=== PATIENT | male | born 1980 | race Caucasian/White ===

== ENCOUNTER 2018-10-07 14:25 | Emergency (ER) | payer MEDICAID ==
[2018-10-07 16:35] VITALS: BP 112/64
--- NOTE | 2018-10-07 17:40 | EDM.PDOC ---
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 He complains of severe pain in the left side of his chest centered mostly in the left posterior axillary line. He said it feels sort of like something bubbling in there when he breathes. He's been using a chest binder to help. He said the pain just seems to get worse. - Related Data Allergies Allergy/AdvReac Type Severity Reaction Status Date / Time Penicillins AdvReac Cannot Verified 10/07/18 16:35 Remember Home Meds: Home Meds NK [No Known Home Meds] 10/07/18 [History] Past Medical History - Past Health History Medical/Surgical History: Denies Medical/Surgical History - Infectious Disease History Infectious Disease History: Reports: Chicken Pox - Past Surgical History Neurological Surgical History: Reports: Other (See Below) Social & Family History - Tobacco Use Smoking Status *Q: Current Every Day Smoker Years of Tobacco use: 10 Packs/Tins Daily: 1 - Caffeine Use Caffeine Use: Reports: Energy Drinks, Soda ED ROS GENERAL - Review of Systems Review Of Systems: ROS reveals no pertinent complaints other than HPI. ED EXAM, UPPER BACK/NECK PAIN - Physical Exam Exam: See Below Exam Limited By: No Limitations General Appearance: Alert, WD/WN, Moderate Distress (VERY slowly looks like he' s having a lot of pain) Cardiovascular/Respiratory: Regular Rate, Rhythm, Other (Lungs clear with normal air movement. No crepitance no rales rhonchi) GI/Abdominal: Soft, Non-Tender Back Exam: Normal Inspection Extremities: Normal Inspection (As above) Course - Vital Signs Last Recorded V/S: Last Vital Signs Temp 35.8 C 10/07/18 16:44 Pulse 57 L 10/07/18 16:44 Resp 16 10/07/18 16:44 BP 112/64 10/07/18 16:44 Pulse Ox 98 10/07/18 16:44 - Orders/Labs/Meds Orders: Active Orders 24 hr Category Date Time Status Ribs 2V w Chest Lt [CR] Stat Exams 10/07/18 17:37 Taken - Radiology Interpretation Free Text/Narrative:: Right ribs shows no rib fracture no pneumothorax no subcutaneous emphysema. Departure - Departure Time of Disposition: 18:19 Disposition: Home, Self-Care 01 Condition: Fair Clinical Impression: Bruised ribs - Discharge Information Referrals: PCP,None [Primary Care Provider] - Forms: ED Department Discharge Additional Instructions: Take Percocet 5/325 (#20) one or 2 tabs every 4 hours as needed for pain. This medication can cause sedation and impair driving and operating machinery. If abused it can cause addiction. He can also take a anti-inflammatory medication like Motrin or naproxen. Wear the chest binder if it helps. The soreness will probably last another week. - My Orders Last 24 Hours: My Active Orders 10/07/18 17:37 Ribs 2V w Chest Lt [CR] Stat - Assessment/Plan Last 24 Hours: My Active Orders 10/07/18 17:37 Ribs 2V w Chest Lt [CR] Stat
--- NOTE | 2018-10-08 09:25 | CR ---
Ribs 2V w Chest Lt CLINICAL HISTORY: Trauma FINDINGS: There is no acute fracture within the ribs. No destructive changes are seen. There is no focal pleural thickening or obvious effusion. IMPRESSION: Negative left ribs.
== END 2018-10-07 18:56 | disposition home or self-care (01) ==
LOC: JP.ED 14:25
DX: S20.212A Contusion of left front wall of thorax, initial encounter (principal); Z88.0 Allergy status to penicillin; F17.210 Nicotine dependence, cigarettes, uncomplicated; W10.9XXA Fall (on) (from) unspecified stairs and steps, initial encounter
CPT/HCPCS: 71101-26-LT; 71101-LT; 99284